=== PATIENT | male | born 1995 | race Two or more races ===

== ENCOUNTER 2017-08-09 18:14 | Emergency (ER) | payer SELFPAY | END 2017-08-09 20:06 | disposition home or self-care (01) | LOC: D.ER 18:14 | DX: M54.5 Low back pain (principal); V49.9XXA Car occupant (driver) (passenger) injured in unspecified traffic accident, initial encounter; Y93.89 Activity, other specified; Y92.410 Unspecified street and highway as the place of occurrence of the external cause ==